=== PATIENT | female | born 1965 | race African-American/Black ===

== ENCOUNTER 2020-04-11 16:54 | Emergency (ER) | payer OTHER ==
[~2020-04-11] VITALS: Ht 170.2 cm; Wt 80.0 kg
[2020-04-11] MEDS ORDERED: ONDANSETRON 4MG ODT PO ONE (17:45)
[2020-04-11] MEDS ORDERED: HYDROCODONE/ACETAMINOPHEN 5/325MG TABLET PO ONE (17:45)
[2020-04-11 20:24] VITALS: BP 139/87
== END 2020-04-11 20:25 | disposition home or self-care (01) ==
LOC: ER 16:54
DX: S82.842A Displaced bimalleolar fracture of left lower leg, initial encounter for closed fracture (principal); I10 Essential (primary) hypertension; W18.30XA Fall on same level, unspecified, initial encounter; Y93.89 Activity, other specified; Y92.89 Other specified places as the place of occurrence of the external cause; Y99.8 Other external cause status
CPT/HCPCS: 29515; 73110; 73130; 73590; 73610; 73630; 99284; Q0162

== ENCOUNTER 2023-02-11 13:00 | Emergency (ER) | payer OTHER ==
[~2023-02-11] VITALS: Ht 172.7 cm; Wt 77.0 kg
[2023-02-11 13:06] VITALS: TEMP 98.2; O2SAT 97
[2023-02-11] MEDS ORDERED: ALBU6.7H15 INH (14:38)
[2023-02-11] MEDS ORDERED: CYCL5TAB MT (14:38)
[2023-02-11 14:57] VITALS: BP 147/89; PULSE 85; RESP 16
== END 2023-02-11 14:57 | disposition home or self-care (01) ==
LOC: ER 13:41
DX: M54.9 Dorsalgia, unspecified (principal); R06.02 Shortness of breath
CPT/HCPCS: 71045; 99283